=== PATIENT | female | born 1950 | race Caucasian/White ===

== ENCOUNTER 2016-06-12 10:50 | Day surgery (SDC) | payer BC ==
[2016-06-09 16:35] VITALS: BMI 31.5
[~2016-06-12 10:50] MED LIST: ALPRAZolam 0.25 MG TAB PO PRN; ASPIRIN 325 MG TAB PO ONE; SODIUM CHLORIDE 0.9% 1,000 ML in EMPTY BAG 1 BAG IV ONE
[2016-06-12] MEDS ORDERED: SODIUM CHLORIDE 0.9% 1,000 ML IV ONE (11:14)
[2016-06-12 11:24] VITALS: RESP 20; TEMP 98
[2016-06-12] MEDS ORDERED: LIDOCAINE 2% INJ 20 MG/ML (20 ML MDV) ONE (12:14)
[2016-06-12] MEDS ORDERED: VERAPAMIL 2.5 MG/ML 2 ML AMP ONE (12:15)
[2016-06-12] MEDS ORDERED: fentaNYL (PF) 50 MCG/ML 2 ML AMP ONE (12:15)
[2016-06-12] MEDS ORDERED: diphenhydrAMINE 50 MG/ML 1 ML VIAL ONE (12:15)
[2016-06-12] MEDS ORDERED: SODIUM CHLORIDE 0.9% (PF) 10 ML VIAL ONE (12:15)
[2016-06-12] MEDS ORDERED: HEPARIN SODIUM 1,000 UNIT/ML VIAL ONE (12:29)
[2016-06-12] MEDS ORDERED: diphenhydrAMINE 50 MG/ML 1 ML VIAL IVP ONE (12:41)
[2016-06-12] MEDS ORDERED: fentaNYL (PF) 50 MCG/ML 2 ML AMP IV ONE (12:43)
[2016-06-12] MEDS ORDERED: LIDOCAINE 2% INJ 20 MG/ML SQ ONE (12:45)
[2016-06-12] MEDS ORDERED: VERAPAMIL SYRINGE (5 MG/10 ML) INTRAARTER ONE (12:48)
[2016-06-12] MEDS ORDERED: IOHEXOL 350 MG/ML 100 ML BOTTLE INJ ONE (13:00)
[2016-06-12] MEDS ORDERED: RX INFO: IV CONTRAST WAS GIVEN 1 EACH MISC MISCELLANE PRN (13:12)
[2016-06-12] MEDS ORDERED: ALPRAZolam 0.25 MG TAB PO PRN (13:13)
[2016-06-12] MEDS ORDERED: SODIUM CHLORIDE 0.9% 1,000 ML IV SCH (13:15)
[2016-06-12 16:27] VITALS: PULSE 74
[2016-06-12 17:47] VITALS: BP 134/70
--- NOTE | 2016-06-12 21:56 | CC ---
DATE OF SERVICE: Ms. Green is a 66-year-old female with history of hypertension and hyperlipidemia who has been complaining of episode of chest discomfort, has been followed by Dr. Chapin, underwent a stress test that showed ST segment depression and chest discomfort. In view of that, recommendation was made regarding cardiac catheterization. The procedure as well as the risks and complications were discussed with the patient who is in full understanding and agreement. PROCEDURE: Patient was brought to the [facility] in a fasting semi-sedated state. After receiving fentanyl and Benadryl, she was draped and prepped in conventional fashion using Xylocaine anesthesia and Seldinger technique, a 6 Polish sheath was introduced in the right radial artery. Selective right and left coronary angiography was performed using 5 Polish 3-1/2 Bend right and left Meg catheters, multiple views of the coronary arteries including hemiaxial views were obtained. Following that, a 5 Polish tight pigtail catheter was introduced into the left ventricle and a 30 degree CHAN view of the left ventricle was obtained procedure. At the end of the procedure, catheter and sheaths were removed. Hemostasis was obtained with the deployment of a TR band. There were no immediate complications. Patient is returned to her room in stable condition. Of note, the patient received 4500 units of intravenous heparin as well as intra-arterial verapamil. FINDINGS: LEFT MAIN: This is a short-sized vessel, large in caliber bifurcating into the left circumflex, left anterior descending coronary artery, left main coronary artery is without any obstructive coronary artery disease. LEFT ANTERIOR DESCENDING CORONARY ARTERY: This is a large-size vessel reaching toward the apex with a wrap around the apex segment, giving rise to a large diagonal branch in the mid segment. The left anterior descending artery and its branches have no evidence of obstructive coronary artery disease. CIRCUMFLEX CORONARY ARTERY: Left circumflex: This is a nondominant vessel, giving rise to 2 obtuse marginal branches. The left circumflex as well as its branches have no evidence of obstructive coronary artery disease. RIGHT CORONARY ARTERY: This is a large dominant vessel, bifurcating distally into PDA and posterolateral segment and branches. The right coronary artery has mild intimal disease in mid segment of 10% to 20% without any evidence of high-grade stenosis. LEFT VENTRICULOGRAM: Left ventriculogram was performed in 30 degrees CHAN view and revealed normal left ventricular size and systolic function. Ejection fraction 60%. There was arrhythmia-induced mitral regurgitation. HEMODYNAMICS: There was no gradient across the aortic valve. The left ventricular end-diastolic pressure was 12 mmHg. CONCLUSION: 1. 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 2. Normal left ventricle size and systolic function. RECOMMENDATIONS: In view of finding anatomy, I recommend continued medical therapy with aggressive coronary risk factor modifications that have been initiated. Those findings and recommendations were discussed with the patient and her family who is in full understanding and agreement.
--- NOTE | 2016-06-12 21:58 | LTR ---
June 12, 2016 RE: Peter Marsha Dear Dr. Pickett: I had the pleasure of performing cardiac catheterization on Mrs. Green at [facility] on the may and a full copy of procedure note will be forwarded to you. In brief, she was found to have minimal intimal disease involving the mid right coronary artery and based on this I have recommended continued medical therapy with the aggressive coronary risk factor modifications that you have initiated. Thank you again for allowing me to participate in her care. Please call if you have any questions. Sincerely, KINGSTON HAMILTON MD
[2016-06-13] MEDS ORDERED: CLOPIDOGREL 75 MG TAB PO SCH (09:00)
[2016-06-13] MEDS ORDERED: NON-FORMULARY DRUG (Ubidecarenone [Co Q-10] 100 MG) PO SCH (09:00)
[2016-06-13] MEDS ORDERED: METOPROLOL SUCCINATE (ER) 50 MG TAB.ER.24H PO SCH (09:00)
[2016-06-13] MEDS ORDERED: NON-FORMULARY DRUG (Ranitidine Hcl [Zantac] 150 MG) PO SCH (09:00)
[2016-06-13] MEDS ORDERED: ASPIRIN 81 MG CHEW PO SCH (09:00)
[2016-06-13] MEDS ORDERED: SIMVASTATIN 10 MG PO SCH (09:00)
== END 2016-06-12 17:50 | disposition home or self-care (01) ==
LOC: CATHCVL 10:50
PROVIDERS: ATTEND Internal Medicine Interventional Cardiology
DX: I25.118 Atherosclerotic heart disease of native coronary artery with other forms of angina pectoris (principal); R94.39 Abnormal result of other cardiovascular function study; I10 Essential (primary) hypertension; E78.5 Hyperlipidemia, unspecified; E78.00 Pure hypercholesterolemia, unspecified; I69.928 Other speech and language deficits following unspecified cerebrovascular disease; Z82.49 Family history of ischemic heart disease and other diseases of the circulatory system; Z79.02 Long term (current) use of antithrombotics/antiplatelets; Z79.899 Other long term (current) drug therapy
CPT/HCPCS: 93458; 99152; C1894; C1769; J2001; J1200; Q9967; J3010; J1644

== ENCOUNTER 2021-06-21 09:49 | Day surgery (SDC) | payer BC, MEDICARE ==
[2021-06-19 10:50] VITALS: BMI 30.1
[~2021-06-21 09:49] MED LIST changes: -ALPRAZolam 0.25 MG TAB PO PRN; -ASPIRIN 325 MG TAB PO ONE; +LACTATED RINGERS 1,000 ML IV SCH; -SODIUM CHLORIDE 0.9% 1,000 ML in EMPTY BAG 1 BAG IV ONE
[2021-06-21 10:34] VITALS: TEMP 98
[2021-06-21] MEDS ORDERED: PROPOFOL 10 MG/ML 20 ML VIAL IV ONE (11:09)
--- NOTE | 2021-06-21 11:23 | P.PCN ---
Date of Procedure: 06/21/21 Procedure(s) Performed: BRIEF HISTORY: Patient is a 71-year-old, pleasant, white female scheduled for an upper endoscopy as a part of evaluation of gastroesophageal reflux symptoms. Currently and Protonix 40 mg daily and Pepcid at bedtime and still has breakthrough heartburn and intermittent epigastric few times a week.. PROCEDURE PERFORMED: Esophagogastroduodenoscopy with biopsy. PREOPERATIVE DIAGNOSIS: Long-standing history of GERD. IV sedation per anesthesia. PROCEDURE: After informed consent was obtained, the patient was brought into the endoscopy unit. IV sedation was administered by Anesthesia under continuous monitoring. Initially the Olympus GIF-140 video endoscope was inserted into the mouth. Esophagus intubated without any difficulty. It was gradually advanced into the stomach and duodenum and carefully examined. The bulb and the second part of the duodenum appeared normal. The scope at this time was withdrawn to the stomach, adequately insufflated with air, and upon careful examination, mucosa of the antrum, had mild gastritis and biopsies were done from this area. There were small polyps noted in the gastric body which were biopsied. Rest of the body, cardia and the fundus appeared normal. The scope was then withdrawn into the esophagus. The GE junction was located at 39 cm from the incisors. The esophagus appeared normal. There were no erosions or ulcerations seen and the patient tolerated the procedure well. IMPRESSION: 1. Mild antral gastritis. 2. Small gastric polyps. 3. No evidence of esophagitis or Iraheta's esophagus RECOMMENDATIONS: The findings of this examination were discussed with the patient as well as her family. She was advised to follow with the biopsy results. She will continue with Protonix 40 mg daily and Pepcid at bedtime and follow antireflux measures.
[2021-06-21 11:55] VITALS: RESP 15
[2021-06-21 12:22] VITALS: BP 127/72; PULSE 67
== END 2021-06-21 12:19 | disposition home or self-care (01) ==
LOC: ORWHC2ENDO 09:49
PROVIDERS: ATTEND Internal Medicine Gastroenterology
DX: K21.00 Gastro-esophageal reflux disease with esophagitis, without bleeding (principal); K31.A11 Gastric intestinal metaplasia without dysplasia, involving the antrum; I10 Essential (primary) hypertension; E78.5 Hyperlipidemia, unspecified; Z86.73 Personal history of transient ischemic attack (TIA), and cerebral infarction without residual deficits; K21.9 Gastro-esophageal reflux disease without esophagitis; Z90.49 Acquired absence of other specified parts of digestive tract; Z98.890 Other specified postprocedural states; Z79.899 Other long term (current) drug therapy; Z79.02 Long term (current) use of antithrombotics/antiplatelets
CPT/HCPCS: 43239; J2704; 88305; 88342